=== PATIENT | female | born 1940 | race Caucasian/White ===

== ENCOUNTER 2017-10-07 08:30 | Inpatient (IN) | payer MEDICARE, MEDICAID ==
[~2017-10-07] VITALS: Ht 160 cm; Wt 112.9 kg
[2017-10-07 08:30] VITALS: BP 119/62
[2017-10-07] MEDS ORDERED: NITROGLYCERIN 0.4MG TABLET SL SL PRN (10:00)
[2017-10-07] MEDS ORDERED: TEMAZEPAM 15MG CAPSULE PO PRN (10:00)
[2017-10-07] MEDS ORDERED: DEXTROSE 50% WATER 50ML SYRINGE IV PRN (10:00)
[2017-10-07 10:17] VITALS: BP 119/62
[2017-10-07] MEDS: BLOOD SUGAR DIAGNOSTIC STRIP TEST SCH ×3 (11:20→21:56)
[2017-10-07] MEDS: DOCUSATE SODIUM 250MG CAPSULE PO SCH (11:25)
[2017-10-07] MEDS: CLOPIDOGREL 75MG TABLET PO SCH (11:25)
[2017-10-07] MEDS: LOSARTAN POTASSIUM 100 MG TABLET PO SCH (11:26)
[2017-10-07] MEDS: HYDROCHLOROTHIAZIDE 25MG TABLET PO SCH (11:26)
[2017-10-07] MEDS ORDERED: LEVOFLOXACIN 250MG TABLET PO SCH (12:30)
[2017-10-07] MEDS: FAMOTIDINE 20MG TABLET PO SCH (12:31)
[2017-10-07] MEDS: FERROUS SULFATE 325MG TABLET PO SCH ×2 (12:31→17:26)
[2017-10-07] MEDS: HYDROCODONE/ACETAMINOPHEN 5/325MG TABLET PO PRN ×2 (12:32→20:35)
[2017-10-07] MEDS: INSULIN LISPRO 100 UNITS/ML SUBCUT SCH ×3 (12:37→21:58)
[2017-10-07 16:02] LABS: BASOPHILS % 0.4 % (0.0-2.0); EOSINOPHILS % 0.7 % (0.0-5.0); HEMATOCRIT. 41.7 % (36.0-48.0); HEMOGLOBIN. 13.5 g/dL (12.0-16.0); LYMPHOCYTES % 15.8 % (20.0-50.0); MEAN CORPUSCULAR HEMOGLOBIN 28.1 pg (28.0-32.0); MEAN PLATELET VOLUME 9.2 fl (7.4-10.4); MONOCYTES % 7.6 % (2.0-8.0); NEUTROPHILS % 75.5 % (40.0-76.0); PLATELET 220 x1000/uL (130-400); RED BLOOD CELL COUNT 4.79 mill/uL (4.2-5.4); RED CELL DISTRIBUTION WIDTH 17.2 % (11.6-14.6)
[2017-10-07 16:24] LABS: CHLORIDE 104 mEq/L (98-107)
[2017-10-07 16:31] LABS: PREALBUMIN 25.2 mg/dL (20.0-40.0)
[2017-10-07] MEDS ORDERED: ENOXAPARIN 40MG/0.4ML SYR SUBCUT SCH (18:00)
[2017-10-07 19:09] LABS: CLARITY URINE TURBID (CLEAR); COLOR URINE YELLOW (YELLOW); KETONES URINE NEGATIVE (NEGATIVE); LEUKOCYTE ESTERASE URINE 3+ (NEGATIVE); NITRITE URINE NEGATIVE (NEGATIVE); OCCULT BLOOD URINE 1+ (NEGATIVE); PROTEIN URINE TRACE (NEGATIVE); SPECIFIC GRAVITY URINE 1.017 (1.005-1.030); UROBILINOGEN URINE 0.2 E.U./dL (0.2-1.0)
[2017-10-07 20:00] VITALS: BP 126/53
[2017-10-08] MEDS: GLIMEPIRIDE 2MG TABLET PO SCH (06:31)
[2017-10-08] MEDS: BLOOD SUGAR DIAGNOSTIC STRIP TEST SCH ×4 (06:34→21:55)
[2017-10-08 07:01] LABS: HEMATOCRIT. 40.6 % (36.0-48.0); MEAN CORPUSCULAR HEMOGLOBIN 27.8 pg (28.0-32.0); MEAN CORPUSCULAR VOLUME 86.8 fL (81.0-99.0); PLATELET 211 x1000/uL (130-400); RED BLOOD CELL COUNT 4.68 mill/uL (4.2-5.4); RED CELL DISTRIBUTION WIDTH 17.2 % (11.6-14.6)
[2017-10-08 07:56] VITALS: BP 110/57
[2017-10-08] MEDS: LOSARTAN POTASSIUM 100 MG TABLET PO SCH (08:05)
[2017-10-08] MEDS: INSULIN LISPRO 100 UNITS/ML SUBCUT SCH ×4 (08:05→21:59)
[2017-10-08] MEDS: HYDROCHLOROTHIAZIDE 25MG TABLET PO SCH (08:05)
[2017-10-08] MEDS: FAMOTIDINE 20MG TABLET PO SCH (08:11)
[2017-10-08] MEDS: CLOPIDOGREL 75MG TABLET PO SCH (08:11)
[2017-10-08] MEDS: DOCUSATE SODIUM 250MG CAPSULE PO SCH (08:11)
[2017-10-08] MEDS: FERROUS SULFATE 325MG TABLET PO SCH ×3 (08:11→16:37)
[2017-10-08] MEDS: HYDROCODONE/ACETAMINOPHEN 5/325MG TABLET PO PRN (08:12)
[2017-10-08 09:30] LABS: TOTAL IRON BINDING CAPACITY 348 ug/dL (250-450)
[2017-10-08 09:52] LABS: PLATELET ESTIMATE NORMAL
[2017-10-08] MEDS: OMEPRAZOLE 20MG CAPSULE EXTENDED RELEASE PO SCH (12:14)
[2017-10-08] MEDS ORDERED: ENOXAPARIN 100MG/ML SYR SUBCUT NR ×2 (15:30→16:00)
[2017-10-08 16:28] LABS: INR 1.1; PROTHROMBIN TIME 11.2 sec (9.4-11.6)
[2017-10-08 20:00] VITALS: BP 107/58
[2017-10-09] MEDS ORDERED: ENOXAPARIN 100MG/ML SYR SUBCUT SCH (06:00)
[2017-10-09] MEDS: BLOOD SUGAR DIAGNOSTIC STRIP TEST SCH ×4 (06:17→20:51)
[2017-10-09] MEDS: INSULIN LISPRO 100 UNITS/ML SUBCUT SCH ×4 (06:32→20:50)
[2017-10-09] MEDS: OMEPRAZOLE 20MG CAPSULE EXTENDED RELEASE PO SCH (06:32)
[2017-10-09] MEDS: GLIMEPIRIDE 2MG TABLET PO SCH (06:33)
[2017-10-09 08:01] VITALS: BP 134/68
[2017-10-09] MEDS: DOCUSATE SODIUM 250MG CAPSULE PO SCH (08:25)
[2017-10-09] MEDS: FERROUS SULFATE 325MG TABLET PO SCH (08:26)
[2017-10-09] MEDS: FAMOTIDINE 20MG TABLET PO SCH (08:26)
[2017-10-09] MEDS: HYDROCHLOROTHIAZIDE 25MG TABLET PO SCH (08:26)
[2017-10-09] MEDS: LOSARTAN POTASSIUM 100 MG TABLET PO SCH (08:26)
[2017-10-09] MEDS: CLOPIDOGREL 75MG TABLET PO SCH (08:26)
[2017-10-09] MEDS: LEVOFLOXACIN 250MG TABLET PO SCH (12:02)
[2017-10-09] MEDS ORDERED: SODIUM CHLORIDE 0.9% 500 ML IV ONE (14:00)
[2017-10-09 14:21] LABS: BG BASE EXCESS -3.2 mmol/L (-2.0-2.0); BG CARBOXYHEMOGLOBIN 0.8 % (0.5-1.5); BG DEOXYHEMOGLOBIN 6.3 % (0.0-5.0); BG FRACTION INSPIRED OXYGEN 28; BG HCO3 ACT 21.1 mmol/L (22.0-26.0); BG METHEMOGLOBIN 0.1 % (0.0-1.5); BG OXYGEN SATURATION 93.6 % (92.0-98.5); BG OXYHEMOGLOBIN 92.8 % (94.0-97.0); BG PCO2 35.8 mmHg (35.0-45.0); BG PH 7.388 (7.350-7.450); BG PO2 72.2 mmHg (75.0-100.0); BG SAMPLE SITE LEFT RADIAL; BG TOTAL HEMOGLOBIN 14.2 g/dL (12.0-18.0); BG VENT MODE NASAL CANNULA
[2017-10-09] MEDS ORDERED: DIATR MEGLU/DIATRIZOATE SOLN 30ML PO SCH (15:30)
[2017-10-09] MEDS ORDERED: BARIUM SULFATE 450ML ORAL SUSP PO NR ×2 (17:00→18:00)
[2017-10-09] MEDS: ENOXAPARIN 120MG/0.8ML SYR SUBCUT SCH (17:13)
[2017-10-09 20:20] VITALS: BP 111/51
[2017-10-09] MEDS: HYDROCODONE/ACETAMINOPHEN 5/325MG TABLET PO PRN (20:44)
[2017-10-09 21:24] LABS: HEMATOCRIT. 39.1 % (36.0-48.0); HEMOGLOBIN. 12.5 g/dL (12.0-16.0); MEAN CORPUSCULAR HEMOGLOBIN 28.3 pg (28.0-32.0); MEAN CORPUSCULAR VOLUME 88.5 fL (81.0-99.0); MEAN PLATELET VOLUME 8.8 fl (7.4-10.4); PLATELET 210 x1000/uL (130-400); RED BLOOD CELL COUNT 4.42 mill/uL (4.2-5.4); RED CELL DISTRIBUTION WIDTH 17.6 % (11.6-14.6)
[2017-10-09] MEDS ORDERED: VANCOMYCIN 1 G PREMIX 200 ML IV NR (21:30)
[2017-10-09 22:33] LABS: ATYPICAL LYMPHOCYTES 2; PLATELET ESTIMATE NORMAL
[2017-10-10] MEDS: ENOXAPARIN 120MG/0.8ML SYR SUBCUT SCH (06:24)
[2017-10-10] MEDS: GLIMEPIRIDE 2MG TABLET PO SCH (06:24)
[2017-10-10] MEDS: BLOOD SUGAR DIAGNOSTIC STRIP TEST SCH ×4 (06:24→21:00)
[2017-10-10 06:37] LABS: HEMATOCRIT. 37.7 % (36.0-48.0); HEMOGLOBIN. 12.2 g/dL (12.0-16.0); MEAN CORPUSCULAR HEMOGLOBIN 28.1 pg (28.0-32.0); MEAN PLATELET VOLUME 9.2 fl (7.4-10.4); PLATELET 203 x1000/uL (130-400); RED BLOOD CELL COUNT 4.34 mill/uL (4.2-5.4); RED CELL DISTRIBUTION WIDTH 17.2 % (11.6-14.6)
[2017-10-10] MEDS: INSULIN LISPRO 100 UNITS/ML SUBCUT SCH ×4 (06:43→22:05)
[2017-10-10 07:09] LABS: PHOSPHORUS 3.5 mg/dL (2.5-4.9)
[2017-10-10 07:30] LABS: FOLIC ACID (FOLATE) SERUM 13.3 ng/mL (>5.38)
[2017-10-10] MEDS: HYDROCODONE/ACETAMINOPHEN 5/325MG TABLET PO PRN (07:52)
[2017-10-10 08:00] VITALS: BP 117/68
[2017-10-10] MEDS: CLOPIDOGREL 75MG TABLET PO SCH (10:10)
[2017-10-10] MEDS: FAMOTIDINE 20MG TABLET PO SCH (10:10)
[2017-10-10] MEDS: DOCUSATE SODIUM 250MG CAPSULE PO SCH (10:10)
[2017-10-10 17:46] LABS: PLATELET ESTIMATE NORMAL
[2017-10-10 20:00] VITALS: BP 102/58
[2017-10-10] MEDS: METOPROLOL TARTRATE 25MG TABLET PO SCH (21:00)
[2017-10-10] MEDS: AMLODIPINE 2.5MG TABLET PO SCH (21:00)
[2017-10-10] MEDS: NITROFURANTOIN 100MG M/M CAPSULE PO SCH (22:17)
[2017-10-11] MEDS: BLOOD SUGAR DIAGNOSTIC STRIP TEST SCH ×4 (07:06→21:11)
[2017-10-11] MEDS: GLIMEPIRIDE 2MG TABLET PO SCH (07:06)
[2017-10-11] MEDS: INSULIN LISPRO 100 UNITS/ML SUBCUT SCH ×4 (07:06→21:00)
[2017-10-11 08:00] VITALS: BP 131/75
[2017-10-11] MEDS ORDERED: REGADENOSON 0.4 MG/5 ML IV ONE ×2 (09:04→16:00)
[2017-10-11] MEDS: LEVOFLOXACIN 250MG TABLET PO SCH (10:32)
[2017-10-11] MEDS: FAMOTIDINE 20MG TABLET PO SCH (10:32)
[2017-10-11] MEDS: AMLODIPINE 2.5MG TABLET PO SCH ×2 (10:33→21:11)
[2017-10-11] MEDS: METOPROLOL TARTRATE 25MG TABLET PO SCH (10:33)
[2017-10-11] MEDS: NITROFURANTOIN 100MG M/M CAPSULE PO SCH (10:33)
[2017-10-11] MEDS: DOCUSATE SODIUM 250MG CAPSULE PO SCH (10:33)
[2017-10-11] MEDS: CLOPIDOGREL 75MG TABLET PO SCH (10:33)
[2017-10-11] MEDS: ENOXAPARIN 120MG/0.8ML SYR SUBCUT SCH (10:38)
[2017-10-11] MEDS: CYANOCOBALAMIN 1000MCG/ML VIAL IM SCH (14:56)
[2017-10-11] MEDS: HYDROCODONE/ACETAMINOPHEN 5/325MG TABLET PO PRN (15:06)
[2017-10-11 20:00] VITALS: BP 121/61
[2017-10-11] MEDS: METOPROLOL TARTRATE 50MG TABLET PO SCH (21:11)
[2017-10-12] MEDS: BLOOD SUGAR DIAGNOSTIC STRIP TEST SCH ×4 (06:12→20:44)
[2017-10-12] MEDS: INSULIN LISPRO 100 UNITS/ML SUBCUT SCH ×4 (06:36→20:43)
[2017-10-12 08:00] VITALS: BP 100/49
[2017-10-12] MEDS: GLIMEPIRIDE 2MG TABLET PO SCH (08:06)
[2017-10-12] MEDS: DOCUSATE SODIUM 250MG CAPSULE PO SCH (08:10)
[2017-10-12] MEDS: FAMOTIDINE 20MG TABLET PO SCH (08:10)
[2017-10-12] MEDS: CLOPIDOGREL 75MG TABLET PO SCH (08:11)
[2017-10-12] MEDS: CYANOCOBALAMIN 1000MCG/ML VIAL IM SCH (08:12)
[2017-10-12] MEDS: ENOXAPARIN 120MG/0.8ML SYR SUBCUT SCH (08:13)
[2017-10-12 08:19] LABS: HEMATOCRIT. 36.8 % (36.0-48.0); HEMOGLOBIN. 11.8 g/dL (12.0-16.0); MEAN CORPUSCULAR HEMOGLOBIN 28.4 pg (28.0-32.0); MEAN CORPUSCULAR VOLUME 88.6 fL (81.0-99.0); MEAN PLATELET VOLUME 9.2 fl (7.4-10.4); PLATELET 205 x1000/uL (130-400); RED BLOOD CELL COUNT 4.16 mill/uL (4.2-5.4)
[2017-10-12] MEDS: METOPROLOL TARTRATE 50MG TABLET PO SCH ×2 (09:00→20:43)
[2017-10-12] MEDS: AMLODIPINE 2.5MG TABLET PO SCH ×2 (09:00→20:43)
[2017-10-12] MEDS: HYDROCODONE/ACETAMINOPHEN 5/325MG TABLET PO PRN ×2 (09:31→20:00)
[2017-10-12 12:21] LABS: PLATELET ESTIMATE NORMAL
[2017-10-12 20:00] VITALS: BP 113/47
[2017-10-12] MEDS ORDERED: TEMAZEPAM 15MG CAPSULE PO PRN (21:00)
[2017-10-13] MEDS: BLOOD SUGAR DIAGNOSTIC STRIP TEST SCH ×4 (06:19→20:44)
[2017-10-13] MEDS: INSULIN LISPRO 100 UNITS/ML SUBCUT SCH ×4 (06:45→20:44)
[2017-10-13] MEDS: GLIMEPIRIDE 2MG TABLET PO SCH (06:45)
[2017-10-13 08:25] VITALS: BP 125/56
[2017-10-13 08:40] VITALS: BP 98/62
[2017-10-13] MEDS: CLOPIDOGREL 75MG TABLET PO SCH (08:40)
[2017-10-13] MEDS: FAMOTIDINE 20MG TABLET PO SCH (08:41)
[2017-10-13] MEDS: DOCUSATE SODIUM 250MG CAPSULE PO SCH (08:41)
[2017-10-13] MEDS: ENOXAPARIN 120MG/0.8ML SYR SUBCUT SCH (08:41)
[2017-10-13] MEDS: LEVOFLOXACIN 250MG TABLET PO SCH (08:41)
[2017-10-13] MEDS: CYANOCOBALAMIN 1000MCG/ML VIAL IM SCH (08:41)
[2017-10-13] MEDS: HYDROCODONE/ACETAMINOPHEN 5/325MG TABLET PO PRN ×3 (08:50→20:43)
[2017-10-13] MEDS: METOPROLOL TARTRATE 50MG TABLET PO SCH ×2 (08:54→20:42)
[2017-10-13] MEDS: AMLODIPINE 2.5MG TABLET PO SCH ×2 (08:55→20:43)
[2017-10-13 20:00] VITALS: BP 123/66
[2017-10-14] MEDS: GLIMEPIRIDE 2MG TABLET PO SCH (05:59)
[2017-10-14] MEDS: BLOOD SUGAR DIAGNOSTIC STRIP TEST SCH ×4 (06:30→22:00)
[2017-10-14 06:59] LABS: HEMATOCRIT. 35.3 % (36.0-48.0); HEMOGLOBIN. 11.8 g/dL (12.0-16.0); MEAN CORPUSCULAR HEMOGLOBIN 29.2 pg (28.0-32.0); MEAN CORPUSCULAR VOLUME 87.6 fL (81.0-99.0); MEAN PLATELET VOLUME 8.7 fl (7.4-10.4); PLATELET 200 x1000/uL (130-400); RED BLOOD CELL COUNT 4.04 mill/uL (4.2-5.4); RED CELL DISTRIBUTION WIDTH 17.8 % (11.6-14.6)
[2017-10-14 08:00] VITALS: BP 155/56
[2017-10-14] MEDS: CYANOCOBALAMIN 1000MCG/ML VIAL IM SCH (08:33)
[2017-10-14] MEDS: DOCUSATE SODIUM 250MG CAPSULE PO SCH (08:34)
[2017-10-14] MEDS: CLOPIDOGREL 75MG TABLET PO SCH (08:34)
[2017-10-14] MEDS: HYDROCODONE/ACETAMINOPHEN 5/325MG TABLET PO PRN ×3 (08:35→20:43)
[2017-10-14] MEDS: FAMOTIDINE 20MG TABLET PO SCH (08:36)
[2017-10-14] MEDS: AMLODIPINE 2.5MG TABLET PO SCH ×2 (08:36→20:47)
[2017-10-14] MEDS: METOPROLOL TARTRATE 50MG TABLET PO SCH ×2 (08:36→20:46)
[2017-10-14] MEDS: ENOXAPARIN 120MG/0.8ML SYR SUBCUT SCH (08:38)
[2017-10-14] MEDS: INSULIN LISPRO 100 UNITS/ML SUBCUT SCH ×4 (08:39→23:09)
[2017-10-14 09:52] LABS: NUCLEATED RED BLOOD CELLS 1 /100 WBC; PLATELET ESTIMATE NORMAL
[2017-10-14] MEDS: LEVOFLOXACIN 250MG TABLET PO SCH (11:39)
[2017-10-14 20:00] VITALS: BP 124/51
[2017-10-14] MEDS ORDERED: ENOXAPARIN 100MG/ML SYR SUBCUT SCH (21:00)
[2017-10-15] MEDS: BLOOD SUGAR DIAGNOSTIC STRIP TEST SCH ×4 (06:30→21:00)
[2017-10-15] MEDS: GLIMEPIRIDE 2MG TABLET PO SCH (06:33)
[2017-10-15 08:00] VITALS: BP 147/71
[2017-10-15] MEDS: INSULIN LISPRO 100 UNITS/ML SUBCUT SCH ×4 (09:00→21:00)
[2017-10-15] MEDS: METOPROLOL TARTRATE 50MG TABLET PO SCH ×2 (09:00→21:00)
[2017-10-15] MEDS: AMLODIPINE 2.5MG TABLET PO SCH ×2 (09:00→21:00)
[2017-10-15] MEDS: CYANOCOBALAMIN 1000MCG/ML VIAL IM SCH (09:16)
[2017-10-15] MEDS: CLOPIDOGREL 75MG TABLET PO SCH (09:18)
[2017-10-15] MEDS: DOCUSATE SODIUM 250MG CAPSULE PO SCH (09:18)
[2017-10-15] MEDS: FAMOTIDINE 20MG TABLET PO SCH (09:18)
[2017-10-15] MEDS: ENOXAPARIN 40MG/0.4ML SYR SUBCUT SCH (09:23)
[2017-10-15 10:08] LABS: 25-HYDROXY VITAMIN D3 32 ng/mL (.)
[2017-10-15] MEDS: LACTULOSE 20G/30ML UDC PO NR ×5 (11:28→17:23)
[2017-10-15] MEDS: LEVOFLOXACIN 250MG TABLET PO SCH (11:28)
[2017-10-15 20:00] VITALS: BP 118/53
[2017-10-16] MEDS: BLOOD SUGAR DIAGNOSTIC STRIP TEST SCH ×4 (05:56→21:20)
[2017-10-16] MEDS: GLIMEPIRIDE 2MG TABLET PO SCH (05:56)
[2017-10-16 06:48] LABS: BASOPHILS % 0.6 % (0.0-2.0); EOSINOPHILS % 1.7 % (0.0-5.0); HEMATOCRIT 37.8 % (36.0-48.0); HEMATOCRIT. 37.8 % (36.0-48.0); HEMOGLOBIN 12.3 g/dL (12.0-16.0); HEMOGLOBIN. 12.3 g/dL (12.0-16.0); LYMPHOCYTES % 26.2 % (20.0-50.0); MEAN CORPUSCULAR HEMOGLOBIN 28.7 pg (28.0-32.0); MEAN CORPUSCULAR VOLUME 88.3 fL (81.0-99.0); MEAN PLATELET VOLUME 8.4 fl (7.4-10.4); MONOCYTES % 9.1 % (2.0-8.0); NEUTROPHILS % 62.4 % (40.0-76.0); PLATELET 215 x1000/uL (130-400); RED BLOOD CELL COUNT 4.27 mill/uL (4.2-5.4); RED CELL DISTRIBUTION WIDTH 17.6 % (11.6-14.6)
[2017-10-16 08:00] VITALS: BP 116/81
[2017-10-16] MEDS: CYANOCOBALAMIN 1000MCG/ML VIAL IM SCH (08:52)
[2017-10-16] MEDS: ENOXAPARIN 40MG/0.4ML SYR SUBCUT SCH (08:57)
[2017-10-16] MEDS: FAMOTIDINE 20MG TABLET PO SCH (08:59)
[2017-10-16] MEDS: DOCUSATE SODIUM 250MG CAPSULE PO SCH (08:59)
[2017-10-16] MEDS: CLOPIDOGREL 75MG TABLET PO SCH (08:59)
[2017-10-16] MEDS: INSULIN LISPRO 100 UNITS/ML SUBCUT SCH ×4 (09:00→21:39)
[2017-10-16] MEDS: AMLODIPINE 2.5MG TABLET PO SCH ×2 (09:07→21:35)
[2017-10-16] MEDS: METOPROLOL TARTRATE 50MG TABLET PO SCH ×2 (09:07→21:00)
[2017-10-16] MEDS: BISACODYL 10MG SUPP PR SCH (10:30)
[2017-10-16] MEDS ORDERED: NON FORMULARY PATIENT HOME MED EA XX SCH (10:45)
[2017-10-16] MEDS ORDERED: ERGOCALCIFEROL 50000UNITS CAPSULE PO SCH (11:00)
[2017-10-16] MEDS ORDERED: METHYLPREDNISOLONE 4 MG PO SCH (12:00)
[2017-10-16] MEDS: GABAPENTIN 100MG CAPSULE PO SCH ×2 (14:15→21:35)
[2017-10-16 22:00] VITALS: BP 120/66
[2017-10-17] MEDS: BLOOD SUGAR DIAGNOSTIC STRIP TEST SCH ×4 (05:55→21:37)
[2017-10-17] MEDS: INSULIN LISPRO 100 UNITS/ML SUBCUT SCH ×4 (05:55→22:13)
[2017-10-17] MEDS: GLIMEPIRIDE 2MG TABLET PO SCH (06:08)
[2017-10-17] MEDS: GABAPENTIN 100MG CAPSULE PO SCH ×3 (06:08→22:08)
[2017-10-17] MEDS: METHYLPREDNISOLONE 4 MG PO SCH ×3 (06:08→18:06)
[2017-10-17 06:39] LABS: PROTHROMBIN TIME 10.7 sec (9.4-11.6)
[2017-10-17 07:30] VITALS: BP 137/68
[2017-10-17] MEDS: DOCUSATE SODIUM 250MG CAPSULE PO SCH (08:38)
[2017-10-17] MEDS: AMLODIPINE 2.5MG TABLET PO SCH ×2 (08:38→22:08)
[2017-10-17] MEDS: FAMOTIDINE 20MG TABLET PO SCH (08:38)
[2017-10-17] MEDS: CLOPIDOGREL 75MG TABLET PO SCH (08:38)
[2017-10-17] MEDS: METOPROLOL TARTRATE 50MG TABLET PO SCH ×2 (08:38→21:00)
[2017-10-17] MEDS: ENOXAPARIN 40MG/0.4ML SYR SUBCUT SCH (08:39)
[2017-10-17] MEDS: BISACODYL 10MG SUPP PR SCH (09:00)
[2017-10-17] MEDS: HYDROCODONE/ACETAMINOPHEN 5/325MG TABLET PO PRN ×2 (09:35→13:48)
[2017-10-17 13:40] VITALS: BP 115/51
[2017-10-17] MEDS: PANTOPRAZOLE 40MG DR TABLET PO SCH (16:19)
[2017-10-17 20:00] VITALS: BP 115/64
[2017-10-17] MEDS ORDERED: METHYLPREDNISOLONE 4 MG PO SCH (21:00)
[2017-10-18] MEDS: METHYLPREDNISOLONE 4 MG PO SCH ×3 (06:09→18:10)
[2017-10-18] MEDS: GABAPENTIN 100MG CAPSULE PO SCH ×3 (06:09→21:31)
[2017-10-18] MEDS: PANTOPRAZOLE 40MG DR TABLET PO SCH (06:09)
[2017-10-18] MEDS: GLIMEPIRIDE 2MG TABLET PO SCH (06:09)
[2017-10-18] MEDS: BLOOD SUGAR DIAGNOSTIC STRIP TEST SCH ×4 (06:10→21:32)
[2017-10-18] MEDS: INSULIN LISPRO 100 UNITS/ML SUBCUT SCH ×4 (06:30→21:36)
[2017-10-18 08:00] VITALS: BP 109/66
[2017-10-18] MEDS: CLOPIDOGREL 75MG TABLET PO SCH (08:01)
[2017-10-18] MEDS: DOCUSATE SODIUM 250MG CAPSULE PO SCH (08:01)
[2017-10-18] MEDS: METOPROLOL TARTRATE 50MG TABLET PO SCH ×2 (08:02→21:00)
[2017-10-18] MEDS: ENOXAPARIN 40MG/0.4ML SYR SUBCUT SCH (08:02)
[2017-10-18] MEDS: AMLODIPINE 2.5MG TABLET PO SCH ×2 (08:03→21:32)
[2017-10-18] MEDS: HYDROCODONE/ACETAMINOPHEN 5/325MG TABLET PO PRN ×2 (08:39→18:20)
[2017-10-18] MEDS: BISACODYL 10MG SUPP PR SCH (09:00)
[2017-10-18 12:55] VITALS: BP 124/57
[2017-10-18 20:00] VITALS: BP 123/53
[2017-10-18] MEDS ORDERED: METHYLPREDNISOLONE 4 MG PO SCH (21:00)
[2017-10-18] MEDS ORDERED: ENOXAPARIN 40MG/0.4ML SYR SUBCUT SCH (21:00)
[2017-10-19] MEDS: PANTOPRAZOLE 40MG DR TABLET PO SCH (06:06)
[2017-10-19] MEDS: GABAPENTIN 100MG CAPSULE PO SCH (06:06)
[2017-10-19] MEDS: METHYLPREDNISOLONE 4 MG PO SCH (06:07)
[2017-10-19] MEDS: GLIMEPIRIDE 2MG TABLET PO SCH (06:07)
[2017-10-19] MEDS: BLOOD SUGAR DIAGNOSTIC STRIP TEST SCH ×2 (06:09→11:59)
[2017-10-19] MEDS: INSULIN LISPRO 100 UNITS/ML SUBCUT SCH ×2 (06:33→12:00)
[2017-10-19 07:10] LABS: BASOPHILS % 0.3 % (0.0-2.0); EOSINOPHILS % 0.3 % (0.0-5.0); HEMATOCRIT. 35.1 % (36.0-48.0); HEMOGLOBIN. 11.5 g/dL (12.0-16.0); LYMPHOCYTES % 14.3 % (20.0-50.0); MEAN CORPUSCULAR HEMOGLOBIN 28.9 pg (28.0-32.0); MEAN CORPUSCULAR VOLUME 88.5 fL (81.0-99.0); MEAN PLATELET VOLUME 8.6 fl (7.4-10.4); MONOCYTES % 5.6 % (2.0-8.0); NEUTROPHILS % 79.5 % (40.0-76.0); PLATELET 190 x1000/uL (130-400); RED BLOOD CELL COUNT 3.96 mill/uL (4.2-5.4); RED CELL DISTRIBUTION WIDTH 17.8 % (11.6-14.6)
[2017-10-19 08:00] VITALS: BP 122/57
[2017-10-19] MEDS ORDERED: ENOXAPARIN 40MG/0.4ML SYR SUBCUT SCH (09:00)
[2017-10-19] MEDS: CLOPIDOGREL 75MG TABLET PO SCH (09:01)
[2017-10-19] MEDS: HYDROCODONE/ACETAMINOPHEN 5/325MG TABLET PO PRN (09:01)
[2017-10-19] MEDS: DOCUSATE SODIUM 250MG CAPSULE PO SCH (09:01)
[2017-10-19] MEDS: METOPROLOL TARTRATE 50MG TABLET PO SCH (09:02)
[2017-10-19] MEDS: AMLODIPINE 2.5MG TABLET PO SCH (09:02)
[2017-10-19] MEDS: BISACODYL 10MG SUPP PR SCH (09:05)
[2017-10-19 13:06] VITALS: BP 122/57
== END 2017-10-19 14:10 | disposition home health service (06) | DRG 552 ==
LOC: UNDOADMIN 09:26
PROVIDERS: ADMIT Physical Medicine & Rehabilitation Spinal Cord Injury Medicine; ATTEND Internal Medicine
DX: M48.061 Spinal stenosis, lumbar region without neurogenic claudication (principal); N17.9 Acute kidney failure, unspecified; E46 Unspecified protein-calorie malnutrition; I82.412 Acute embolism and thrombosis of left femoral vein; I95.9 Hypotension, unspecified; R78.81 Bacteremia; E66.01 Morbid (severe) obesity due to excess calories; E11.22 Type 2 diabetes mellitus with diabetic chronic kidney disease; B95.7 Other staphylococcus as the cause of diseases classified elsewhere; G82.20 Paraplegia, unspecified; I82.431 Acute embolism and thrombosis of right popliteal vein; N39.0 Urinary tract infection, site not specified; E87.1 Hypo-osmolality and hyponatremia; Z68.42 Body mass index [BMI] 45.0-49.9, adult; R13.10 Dysphagia, unspecified; J44.9 Chronic obstructive pulmonary disease, unspecified; G89.29 Other chronic pain; M54.5 Low back pain; D72.829 Elevated white blood cell count, unspecified; M51.26 Other intervertebral disc displacement, lumbar region; R26.9 Unspecified abnormalities of gait and mobility; R53.81 Other malaise; R00.0 Tachycardia, unspecified; R09.02 Hypoxemia; K46.9 Unspecified abdominal hernia without obstruction or gangrene; B96.20 Unspecified Escherichia coli [E. coli] as the cause of diseases classified elsewhere; N18.2 Chronic kidney disease, stage 2 (mild); K43.9 Ventral hernia without obstruction or gangrene; B95.2 Enterococcus as the cause of diseases classified elsewhere; M48.07 Spinal stenosis, lumbosacral region; M43.16 Spondylolisthesis, lumbar region; D63.8 Anemia in other chronic diseases classified elsewhere; K57.90 Diverticulosis of intestine, part unspecified, without perforation or abscess without bleeding; I13.10 Hypertensive heart and chronic kidney disease without heart failure, with stage 1 through stage 4 chronic kidney disease, or unspecified chronic kidney disease; I25.118 Atherosclerotic heart disease of native coronary artery with other forms of angina pectoris; Z96.653 Presence of artificial knee joint, bilateral; Z88.0 Allergy status to penicillin; Z91.041 Radiographic dye allergy status; Z83.3 Family history of diabetes mellitus; Z87.891 Personal history of nicotine dependence; Z95.5 Presence of coronary angioplasty implant and graft; E78.00 Pure hypercholesterolemia, unspecified; Z79.899 Other long term (current) drug therapy; M54.30 Sciatica, unspecified side
CPT/HCPCS: 36415; 36600; 72148; 74176; 76770; 78452; 78582; 80048; 80053; 80061; 81003; 82306; 82375; 82550; 82607; 82728; 82746; 82805; 82962; 83036; 83540; 83550; 83690; 83735; 84100; 84134; 84443; 84630; 85025; 85027; 85610; 87040; 87077; 87086; 87186; 92610; 93005; 93017; 93306; 93970; 97110; 97112; 97116; 97140; 97162; 97166; 97530; 97535; A6261; A9500; A9558; J1650; J1815; J2785; J3370; J3420; J7040; J7509

== ENCOUNTER → 2018-01-20 | Outpatient (CLI) | payer MEDICARE, MEDICAID ==
[~2018-01-20] MED LIST: GADOBENATE DIMEGLUMINE 529 MG/ML 10ML IV ONE
== END | disposition home or self-care (01) ==
LOC: MRI 09:37
PROVIDERS: ATTEND Neurological Surgery
DX: M48.061 Spinal stenosis, lumbar region without neurogenic claudication (principal); M12.88 Other specific arthropathies, not elsewhere classified, other specified site; M43.16 Spondylolisthesis, lumbar region
CPT/HCPCS: 72158; A9577